=== PATIENT | female | born 1950 | race Caucasian/White ===

== ENCOUNTER 2021-10-06 13:52 | Inpatient (IN) ==
[2021-10-06] MEDS ORDERED: Furosemide 40 mg/4 ml IV VIAL IV SLOW PU ONE (14:00)
[2021-10-06 14:27] LABS: PO2 Arterial 78 mmHg (80-100)
[2021-10-06 14:30] LABS: ABS Basophils 0.1 10^3/ul (0-0.2); ABS Lymphocytes 0.5 10^3/ul (1.0-4.8); ABS Monocytes 0.6 10^3/ul (0-0.8); ABS Neutrophils 7.2 10^3/ul (1.5-7.7); Eosinophil % 0.3 %; Hematocrit 42 % (35-47); Hemoglobin 13.5 g/dL (12.0-16.0); Lymphocyte % 5.8 %; Mean Corpuscular HGB Conc 32 g/dL (31-36); Mean Corpuscular Hemoglobin 31 pg (27-31); Mean Corpuscular Volume 97 fL (80-97); Mean Platelet Volume 7.1 fL (7.4-10.4); Nucleated Red Blood Cells % 0.2; Platelet Count 300 10^3/uL (150-450); Red Blood Count 4.39 10^6 /uL (3.70-4.87); Red Cell Distribution Width 16 % (10-15); White Blood Count 8.4 10^3/uL (3.5-10.8)
[2021-10-06 14:32] LABS: PCO2 Arterial 74 mmHg (35-45)
[2021-10-06] MEDS ORDERED: Piperacillin/Tazobac ADVAN 3.375 GM in NS 0.9% 100 ml BAG 100 ML IV ONE (15:05)
[2021-10-06 15:13] LABS: Albumin 4.1 g/dL (3.2-5.2); Albumin/Globulin Ratio 1.2 (1-3); Calcium 9.6 mg/dL (8.6-10.3); Globulin 3.5 g/dL (2-4); Potassium 4.1 mmol/L (3.5-5.0); Total Bilirubin 0.8 mg/dL (0.2-1.0); Total Protein 7.6 g/dL (6.4-8.9)
[2021-10-06 15:50] LABS: PCO2 Arterial 75 mmHg (35-45); PO2 Arterial 56 mmHg (80-100)
[2021-10-06 16:15] LABS: High Sensitivity Troponin 1 Hr 102 pg/mL (<15)
[2021-10-06] MEDS ORDERED: Albuterol HFA INHALER 8 gm MDI INH PRN (16:54)
[2021-10-06] MEDS ORDERED: Zosyn per Pharmacy NOTE FOLLOW UP SCH (17:00)
[2021-10-06] MEDS: Enoxaparin 40 MG/0.4 ML SYR SUBCUT SCH (18:03)
[2021-10-06] MEDS: ZOSYN 3.375 GM Q8H per EXTENDED INFUSION IV SCH (20:39)
[2021-10-07] MEDS: ZOSYN 3.375 GM Q8H per EXTENDED INFUSION IV SCH (03:33)
[2021-10-07 06:26] LABS: ABS Lymphocytes 0.6 10^3/ul (1.0-4.8); ABS Monocytes 0.4 10^3/ul (0-0.8); ABS Neutrophils 5.7 10^3/ul (1.5-7.7); Hematocrit 40 % (35-47); Hemoglobin 12.7 g/dL (12.0-16.0); Mean Corpuscular HGB Conc 32 g/dL (31-36); Mean Corpuscular Hemoglobin 31 pg (27-31); Mean Corpuscular Volume 96 fL (80-97); Mean Platelet Volume 7.6 fL (7.4-10.4); Platelet Count 279 10^3/uL (150-450); Red Blood Count 4.13 10^6 /uL (3.70-4.87); Red Cell Distribution Width 16 % (10-15); White Blood Count 6.7 10^3/uL (3.5-10.8)
[2021-10-07 06:49] LABS: CO2 Carbon Dioxide 37 mmol/L (22-32); Chloride 103 mmol/L (101-111)
[2021-10-07 06:51] LABS: Anion Gap 6 mmol/L (2-11); Sodium 146 mmol/L (135-145)
[2021-10-07 06:54] LABS: Blood Urea Nitrogen 33 mg/dL (6-24); Glucose 124 mg/dL (70-100); eGFR CKD-EPI 71.7 (>60)
[2021-10-07] MEDS ORDERED: Furosemide 40 mg/4 ml IV VIAL IV ONE (07:39)
[2021-10-07 08:04] LABS: Albumin 3.7 g/dL (3.2-5.2)
[2021-10-07 08:10] LABS: ALT 113 U/L (7-52); Albumin/Globulin Ratio 1.2 (1-3); Alkaline Phosphatase 43 U/L (35-149); Globulin 3.2 g/dL (2-4); Total Protein 6.9 g/dL (6.4-8.9)
[2021-10-07] MEDS: Tiotropium Brom/Olodaterol MDI INH SCH (08:19)
[2021-10-07] MEDS: Aspirin EC 81 mg TAB.EC (enteric coated) PO SCH (08:54)
[2021-10-07 10:12] LABS: Direct Bilirubin Redraw 0.2 mg/dL (0.03-0.18)
[2021-10-07] MEDS: Enoxaparin 40 MG/0.4 ML SYR SUBCUT SCH (16:07)
[2021-10-08 05:14] LABS: ABS Eosinophils 0.1 10^3/ul (0-0.6); ABS Lymphocytes 1.4 10^3/ul (1.0-4.8); ABS Neutrophils 4.8 10^3/ul (1.5-7.7); Eosinophil % 0.7 %; Hematocrit 41 % (35-47); Lymphocyte % 19.3 %; Mean Corpuscular HGB Conc 32 g/dL (31-36); Mean Corpuscular Hemoglobin 31 pg (27-31); Mean Corpuscular Volume 95 fL (80-97); Mean Platelet Volume 7.2 fL (7.4-10.4); Nucleated Red Blood Cells % 0.1; Platelet Count 281 10^3/uL (150-450); Red Blood Count 4.26 10^6 /uL (3.70-4.87); Red Cell Distribution Width 16 % (10-15); White Blood Count 7.3 10^3/uL (3.5-10.8)
[2021-10-08 05:57] LABS: Calcium 8.9 mg/dL (8.6-10.3); Magnesium 1.8 mg/dL (1.9-2.7); eGFR CKD-EPI 92.8 (>60)
[2021-10-08] MEDS: Tiotropium Brom/Olodaterol MDI INH SCH (07:50)
[2021-10-08] MEDS ORDERED: Magnesium Sulfate 2 gm BAG 2 GM/50 ML BAG IVPB ONE (07:51)
[2021-10-08] MEDS: Aspirin EC 81 mg TAB.EC (enteric coated) PO SCH (08:34)
[2021-10-08] MEDS ORDERED: Iohexol 350 (CONTRAST) 500 ML MDV IV ONE (14:23)
[2021-10-08] MEDS: Enoxaparin 40 MG/0.4 ML SYR SUBCUT SCH (15:03)
[2021-10-08] MEDS: Polyethylene Glycol 3350 17 GM PACKET PO SCH (22:20)
[2021-10-09 05:49] LABS: ABS Eosinophils 0.6 10^3/ul (0-0.6); ABS Lymphocytes 1.3 10^3/ul (1.0-4.8); ABS Monocytes 1.1 10^3/ul (0-0.8); ABS Neutrophils 5.5 10^3/ul (1.5-7.7); Eosinophil % 7.1 %; Hematocrit 44 % (35-47); Hemoglobin 13.7 g/dL (12.0-16.0); Lymphocyte % 14.9 %; Mean Corpuscular HGB Conc 31 g/dL (31-36); Mean Corpuscular Hemoglobin 30 pg (27-31); Mean Corpuscular Volume 97 fL (80-97); Mean Platelet Volume 7.9 fL (7.4-10.4); Nucleated Red Blood Cells % 0.1; Platelet Count 286 10^3/uL (150-450); Red Cell Distribution Width 16 % (10-15); White Blood Count 8.5 10^3/uL (3.5-10.8)
[2021-10-09 05:58] LABS: Albumin 3.5 g/dL (3.2-5.2); Albumin/Globulin Ratio 1.1 (1-3); Calcium 9.1 mg/dL (8.6-10.3); Globulin 3.1 g/dL (2-4); Magnesium 2.1 mg/dL (1.9-2.7); Potassium 4.3 mmol/L (3.5-5.0); Total Bilirubin 0.5 mg/dL (0.2-1.0); Total Protein 6.6 g/dL (6.4-8.9); eGFR CKD-EPI 93.5 (>60)
[2021-10-09] MEDS: Tiotropium Brom/Olodaterol MDI INH SCH (08:05)
[2021-10-09] MEDS: Polyethylene Glycol 3350 17 GM PACKET PO SCH (09:12)
[2021-10-09] MEDS: Aspirin EC 81 mg TAB.EC (enteric coated) PO SCH (09:16)
[2021-10-09] MEDS: Enoxaparin 40 MG/0.4 ML SYR SUBCUT SCH (15:16)
[2021-10-10 05:59] LABS: Potassium 4.9 mmol/L (3.5-5.0); eGFR CKD-EPI 93.5 (>60)
[2021-10-10] MEDS: Tiotropium Brom/Olodaterol MDI INH SCH (07:59)
[2021-10-10] MEDS: Aspirin EC 81 mg TAB.EC (enteric coated) PO SCH (09:05)
[2021-10-10] MEDS: Polyethylene Glycol 3350 17 GM PACKET PO SCH (09:05)
[2021-10-10 11:56] LABS: PO2 Arterial 70 mmHg (80-100)
[2021-10-10 12:00] LABS: PCO2 Arterial 74 mmHg (35-45)
[2021-10-10] MEDS ORDERED: COVID-19 VACCINE, MRNA(MODERNA) BOOSTER/PF 50 MCG/0.25 ML IM ONE (15:00)
[2021-10-10] MEDS: Enoxaparin 40 MG/0.4 ML SYR SUBCUT SCH (17:47)
[2021-10-10] MEDS ORDERED: Calcium Carb (TUMS) 500 mg CHEW TAB PO PRN (23:32)
[2021-10-11 06:56] LABS: Hematocrit 42 % (35-47); Hemoglobin 13.7 g/dL (12.0-16.0); Mean Corpuscular HGB Conc 33 g/dL (31-36); Mean Corpuscular Hemoglobin 31 pg (27-31); Mean Corpuscular Volume 96 fL (80-97); Platelet Count 250 10^3/uL (150-450); Red Blood Count 4.41 10^6 /uL (3.70-4.87); Red Cell Distribution Width 15 % (10-15); White Blood Count 8.2 10^3/uL (3.5-10.8)
[2021-10-11 07:18] LABS: Calcium 9.7 mg/dL (8.6-10.3); Magnesium 1.9 mg/dL (1.9-2.7); Potassium 4.7 mmol/L (3.5-5.0); eGFR CKD-EPI 96.1 (>60)
[2021-10-11] MEDS: Tiotropium Brom/Olodaterol MDI INH SCH (07:39)
[2021-10-11] MEDS: Aspirin EC 81 mg TAB.EC (enteric coated) PO SCH (08:31)
[2021-10-11] MEDS: Polyethylene Glycol 3350 17 GM PACKET PO SCH (08:34)
[2021-10-11 11:56] VITALS: BP 107/54
== END 2021-10-11 13:22 | disposition home or self-care (01) | DRG 291 ==
LOC: ED 13:52 → EDHOLD 15:49 → SUATTDRO 15:49 → ICU 17:08 → MED 10-08 17:01
PROVIDERS: ADMIT Surgery Surgical Critical Care; ATTEND Internal Medicine